=== PATIENT | female | born 2000 | race Caucasian/White ===

== ENCOUNTER 2025-02-26 18:44 | Emergency (ER) | payer OTHER | END 2025-02-26 19:36 | disposition home or self-care (01) | LOC: VM.ED 18:44 | DX: J06.9 Acute upper respiratory infection, unspecified (principal); Z88.0 Allergy status to penicillin | CPT/HCPCS: 87428-QW; 99283 ==

== ENCOUNTER 2025-03-20 18:32 | Emergency (ER) | payer OTHER | END 2025-03-20 19:05 | disposition home or self-care (01) | LOC: VM.ED 18:32 | DX: L50.9 Urticaria, unspecified (principal); Z88.0 Allergy status to penicillin; E66.9 Obesity, unspecified; Z68.31 Body mass index [BMI] 31.0-31.9, adult | CPT/HCPCS: 99282; 99283; A9270-GY ==